=== PATIENT | female | born 1950 | race Caucasian/White ===

== ENCOUNTER 2018-02-28 20:29 | Emergency (ER) | payer OTHER ==
[~2018-02-28] VITALS: Ht 149.9 cm; Wt 69.9 kg
[2018-02-28 20:36] VITALS: Ht 149.9 cm; Wt 69.9 kg
[2018-02-28 21:50] LABS: BASOPHIL % 0.7 % (0-2); PLATELET COUNT 322 x10^3mcL (130-400)
[2018-02-28 21:52] LABS: RED CELL DISTRIBUTION WIDTH 15.1 % (11.5-14.5)
[2018-02-28 22:00] LABS: CALCIUM 9.1 mg/dL (8.5-10.1); CREATININE SERUM 1.1 mg/dL (0.6-1.0); POTASSIUM SERUM 4.1 mmol/L (3.5-5.1)
[2018-02-28 22:05] LABS: ALBUMIN 3.7 g/dL (3.4-5.0); BILIRUBIN TOTAL 0.34 mg/dL (0.20-1.00); TOTAL PROTEIN, SERUM 7.5 g/dL (6.4-8.2)
[2018-02-28 23:54] VITALS: BP 127/75
== END 2018-02-28 23:54 | disposition home or self-care (01) ==
LOC: ED 20:29
PROVIDERS: Emergency Medicine
PROC: BW28ZZZ Computerized Tomography (CT Scan) of Head (ICD-10-PCS; principal; 2018-02-28)
DX: R42 Dizziness and giddiness (principal); M54.9 Dorsalgia, unspecified; R20.0 Anesthesia of skin
CPT/HCPCS: 36415; J8597; Q0162